=== PATIENT | female | born 1955 | race African-American/Black ===

== ENCOUNTER 2020-09-06 09:52 | Day surgery (SDC) | payer MEDICARE, OTHER ==
[~2020-09-06] VITALS: Ht 160 cm; Wt 85.0 kg
[~2020-09-06 09:52] MED LIST: ACETAMINOPHEN 500 MG TABLET PO PRN; ALBU2.5V8 INH; AMLO-187 PO; ASPI500T16 PO; CALC200T3 PO; DOXY1TAB2 PO; HYDROmorphone 2 MG/ML VIAL IVP PRN; IV RINGERS,LACTATED 1000ML 1,000 ML IV SCH; PROCHLORPERAZINE 10 MG/2 ML VIAL. IVP PRN; TRAM50TA PO; VALIUM10 MG PO; fentaNYL PF VIAL 100 MCG/2 ML VIAL IVP PRN
[2020-09-06 10:17] VITALS: BP 133/61
[2020-09-06] MEDS ORDERED: fentaNYL PF VIAL 100 MCG/2 ML VIAL ONE ×2 (10:36→11:57)
[2020-09-06] MEDS ORDERED: ROCURONIUM 50 MG/5 ML VIAL. ONE (10:36)
[2020-09-06] MEDS ORDERED: PROPOFOL 10 MG/ML (20ML) VIAL. IV ONE (10:37)
[2020-09-06] MEDS ORDERED: SEVOFLURANE 61 TO 120 MINUTES. IH ONE ×2 (10:37→12:11)
[2020-09-06] MEDS ORDERED: KETOROLAC 30 MG/ML VIAL. ONE (10:37)
[2020-09-06] MEDS ORDERED: DEXAMETHASONE SOD PHOS 4 MG/ML VIAL ONE (10:37)
[2020-09-06] MEDS ORDERED: LIDOCAINE 2% PF 5 ML VIAL. ONE (10:37)
[2020-09-06] MEDS ORDERED: ONDANSETRON PF 4 MG/2 ML VIAL. ONE (10:37)
[2020-09-06] MEDS ORDERED: SURGICEL HEMOSTAT 4X8 EACH. ONE (11:09)
[2020-09-06] MEDS ORDERED: IOHEXOL 300 MG/ML 50 ML VIAL. ONE (11:09)
[2020-09-06] MEDS ORDERED: BUPIVACAINE-EPI 0.25%-1:200000 MPF 30 ML VIAL. ONE (11:10)
[2020-09-06] MEDS ORDERED: NEOSTIGMINE METHYLSULFATE 5 MG/5 ML SYRINGE. ONE (11:44)
[2020-09-06] MEDS ORDERED: GLYCOPYRROLATE 1 MG/5 ML VIAL. ONE (11:45)
--- NOTE | 2020-09-06 12:01 | PDOC4 ---
Operative Note Operative Note Date: September 06, 2020 at 1158 Preoperative diagnosis: Biliary dyskinesia Postoperative diagnosis: Same Procedure: Laparoscopic cholecystectomy with fluorescein cholangiography Surgeon: Gregorio Specimen: Gallbladder Dictation: Patient is a 65-year-old female with right upper quadrant abdominal pain postprandial nausea and a HIDA scan with ejection fraction of only 18%. Procedure of laparoscopic cholecystectomy was explained to the patient detail risk benefits were also discussed including bleeding infection injury to intra- abdominal contents possible necessitating further open operations alternatives to this procedure also discussed with patient who seemed to understand and gave a verbal written consent to have procedure performed. Patient was taken to the operating room placed in the supine position general anesthesia was initiated once patient was sleeping intubated her abdomen was prepped and draped usual sterile fashion using ChloraPrep. Area just below the umbilicus was injected with quarter percent Marcaine with epinephrine incision was made 11 blade scalpel and a varies needle was placed within the abdomen creating pneumoperitoneum. A 11 mm port was then placed and a 5 mm camera is placed wit hin the abdomen which was inspected there is quite a few adhesions to the liver and abdominal wall but there was a clear path to the right upper quadrant. A 5 mm port was placed in the epigastrium a 5 mm port was placed in the right midabdomen a 5 mm port was placed in the right lateral abdomen the dome of the gallbladder is grasped retracted cephalad there were some adhesions to the gallbladder was taken down blunt dissection exposing the triangle of the infundibulum the gallbladder is grasped tract laterally. The adherent tissue the triangle were taken down with blunt dissection exposing the cystic duct and cystic artery the fluorescein cholangiography was performed which showed the data me the common bile duct cystic duct with no evidence of obstruction. The cystic duct was doubly clipped and transected the cystic artery was clipped and transected the gallbladder is taken off the liver with hook electrocautery placed in Endo Catch bag removed and the umbilicus right upper quadrant was irrigated and suctioned dry hemostasis deemed be appropriate the pneumoperitoneum was reduced all ports were removed the fascial defect at the umbilicus was closed with a [id number] 0 Vicryl suture and the skin was reapproximated all port sites for subcuticular Monocryl Mastisol Steri-Strips and island dressings were applied. Patient was awakened and extubated in the operating room taken to recovery in stable condition all sponge instrument needle counts listed as correct estimated blood loss 10 mL. FAZAL ROSSI MD Sep 06, 2020 12:01
[2020-09-06] MEDS ORDERED: OXYC1TAB15 PO (12:03)
--- NOTE | 2020-09-06 12:05 | DISCH ---
DISCHARGE INSTRUCTIONS Condition on Discharge Condition on Discharge: Stable Activity After Discharge Activity Instructions for Disc: Avoid exertion Other activity instructions: No lifting more than 20 pounds for 2 weeks Diet after Discharge Diet after Discharge: Low Fat Wound Incision Care Other wound/incision instructi: May shower in 24 hours Contacting the DRJackie after DC Call your doctor for: If your condition worsens Follow-Up Follow up with: Follow-up with Dr. Rossi in 2 weeks FAZAL ROSSI MD Sep 06, 2020 12:05
[2020-09-06] MEDS ORDERED: oxyCODONE/APAP 5/325 1 TAB TABLET PO ONE (12:30)
[2020-09-06] MEDS ORDERED: MORPHINE SULFATE 2 MG/ML INJ. ONE (12:31)
[2020-09-06] MEDS: MORPHINE SULFATE 2 MG/ML INJ. IVP PRN ×2 (12:35→12:44)
[2020-09-06] MEDS ORDERED: HYDROmorphone 2 MG/ML VIAL ONE (12:52)
[2020-09-06 13:25] VITALS: BP 112/49
--- NOTE | 2020-09-11 13:15 | PATHOLOGY ---
[facility] Accession Number: [id number] . 01 Material submitted: . gallbladder - GALLBLADDER AND CONTENTS . 01 Clinical history: . BILIARY DYSKENSIA LAP EUGENIA . 02 Diagnosis: Gallbladder, laparoscopic cholecystectomy: - Chronic cholecystitis, mild. (JPM:pepe; 09/11/2020) S 09/11/2020 0933 Local . 02 Comment: There are no calculi identified within the gallbladder lumen or specimen container. Sections of the gallbladder show congestion and mild chronic inflammation. There is no evidence of malignancy. (JPM:pepe; 09/11/2020) . 02 Electronically signed: . Henry Mcknight MD, Pathologist NPI- [id number] . 01 Gross description: . Fixative: Formalin Labeled: Gallbladder and contents Specimen received: Previously open gallbladder Dimensions: 7.5 x 3.0 x 1.3 cm Serosa: Green bile-stained Lymph node: Not present Mucosa: Velvety dark green bile-stained Average wall thickness: 0.1-0.2 cm Calculi: Not present in the specimen or the container Abnormalities: No grossly apparent lesions A1- Track Worker body, fundus, and the cystic duct margin. (BLJ; 09/07/2020) BLJ/BLJ 09/11/2020 0932 Local . 02 Pathologist provided ICD-10: K81.1 . 02 CPT . 344998 Specimen Comment: A courtesy copy of this report has been sent to [phone], [phone] Specimen Comment: [id number] Specimen Comment: Report sent to / DR STALLINGS Performed at: 01 [facility] [address] [place] [address] [address], [place], [place] [id number] MD Jai Dunne MD Phone: [phone] Performed at: [address] [id number] MD Henry Mcknight MD Phone: [phone]
== END 2020-09-06 13:50 | disposition home or self-care (01) ==
LOC: SURG 09:52
PROVIDERS: ATTEND Surgery
DX: K82.8 Other specified diseases of gallbladder (principal); K81.1 Chronic cholecystitis; I10 Essential (primary) hypertension; J44.9 Chronic obstructive pulmonary disease, unspecified; E66.9 Obesity, unspecified; F41.9 Anxiety disorder, unspecified; F32.9 Major depressive disorder, single episode, unspecified; K21.9 Gastro-esophageal reflux disease without esophagitis; Z79.82 Long term (current) use of aspirin; Z79.899 Other long term (current) drug therapy; Z90.710 Acquired absence of both cervix and uterus; Z98.890 Other specified postprocedural states; Z72.89 Other problems related to lifestyle
CPT/HCPCS: 47563; 88304; A4364; A4930; A6219; A6402; J0690; J1100; J1170; J1885; J2270; J2405; J2704; J2710; J3010; J3490; A4223; A4657; Q9967